=== PATIENT | female | born 1955 | race Caucasian/White ===

== ENCOUNTER → 2025-01-27 14:18 | Outpatient (BNVA) | payer MEDICARE, SELFPAY | PROVIDERS: PCP Nurse Practitioner Family; Visit Provider Nurse Practitioner Family | DX: R05.9 Cough, unspecified (principal); R50.9 Fever, unspecified; R06.02 Shortness of breath; J44.1 Chronic obstructive pulmonary disease with (acute) exacerbation | CPT/HCPCS: 87071; 87400; 87426; 87880 ==

== ENCOUNTER → 2025-03-14 10:30 | Outpatient (BNVA) | payer MEDICARE, SELFPAY | PROVIDERS: PCP Nurse Practitioner Family; Visit Provider Nurse Practitioner Family | DX: Z13.6 Encounter for screening for cardiovascular disorders (principal) | CPT/HCPCS: 80053; 80061; 85025 ==

== ENCOUNTER 2025-03-19 08:49 | Outpatient (CLI) | payer MEDICARE, SELFPAY ==
--- NOTE | 2025-03-19 09:00 | CT_ITS ---
WS: [id number] LDCT LUNG CANCER SCREENING TECHNIQUE: Noncontrast CT of the chest with coronal and sagittal reformatted images. CLINICAL INFORMATION: F17.210 - Nicotine dependence, cigarettes, uncomplicated COMPARISON: None. DLP: 52.80 mGy.cm DIvol: Mean CTDIvol: 1.00 (mGy) All CT scans at [facility] use at least one of these dose optimization techniques: automated exposure control; mA and/or kV adjustment per patient size (includes targeted exams where dose is matched to clinical indication); or iterative reconstruction. FINDINGS: Moderate chronic emphysematous changes. Small RIGHT perifissural nodule. Subsegmental atelectasis in the lingula and LEFT lower lobe. Chronic LEFT rib fractures with callus formation. Enlarged bulky RIGHT thyroid mass with extensive dystrophic calcification. This could be further evaluated with ultrasound and contrast-enhanced neck CT. RIGHT to LEFT mass effect on the trachea at the thoracic inlet. Aortic calcification. Normal caliber thoracic aorta. Mild coronary calcification. Adrenal glands are normal. Splenic artery calcification. Moderate thoracic kyphosis. Chronic anterior wedging the mid and lower thoracic spine. CT/CT lung screening [id number] IMPRESSION: Enlarged bulky RIGHT thyroid mass with extensive dystrophic calcification. This could be further evaluated with ultrasound and contrast-enhanced neck CT. LUNG-RADS: 2S-Benign Appearance or Behavior with Significant Findings FOLLOW UP: 12 Month: Continue annual screening with LDCT
== END 2025-03-19 08:50 | disposition home or self-care (01) ==
LOC: RAD 08:51
PROVIDERS: PCP Nurse Practitioner Family; Visit Provider Nurse Practitioner Family
DX: Z12.2 Encounter for screening for malignant neoplasm of respiratory organs (principal); F17.210 Nicotine dependence, cigarettes, uncomplicated; J43.8 Other emphysema; R91.1 Solitary pulmonary nodule; J98.11 Atelectasis; S22.42XD Multiple fractures of ribs, left side, subsequent encounter for fracture with routine healing; R93.89 Abnormal findings on diagnostic imaging of other specified body structures; I70.0 Atherosclerosis of aorta; I25.10 Atherosclerotic heart disease of native coronary artery without angina pectoris; I70.8 Atherosclerosis of other arteries; M40.294 Other kyphosis, thoracic region
CPT/HCPCS: 71271

== ENCOUNTER 2025-03-31 14:56 | Outpatient (CLI) | payer MEDICARE, SELFPAY ==
--- NOTE | 2025-03-31 15:00 | MM_ITS ---
WS: [id number] BILATERAL 3D TOMOSYNTHESIS DIGITAL SCREENING MAMMOGRAPHY WITH CAD CLINICAL INFORMATION: Z12.39 - Encounter for other screening for malignant neop... HISTORY: Screening mammogram. No current complaints. COMPARISON: Baseline TECHNIQUE: Bilateral CC and MLO views. FINDINGS: Scattered fibroglandular densities bilaterally. No suspicious focal mass, asymmetry, calcifications, or architectural distortion. No evidence of malignancy. Incidental calcifications RIGHT breast MM/MM scr BI tomosynthesis [id number] IMPRESSION: DENSITY: There are scattered areas of fibroglandular density. BI-RADS: 2 - Benign. FOLLOW UP: 1 Year Follow-up Recommend return to annual screening mammography.
--- NOTE | 2025-03-31 15:30 | XR_ITS ---
WS: [email or web address] SCREENING DEXA SCAN Quick [employer] CLINICAL INFORMATION: Z78.0 - Asymptomatic menopausal state COMPARISON: None. FINDINGS: The L1-L4 bone mineral density measures 1.178 g/cm2. This corresponds to a T score score of 0.0 and Z score of 1.1. Left femoral neck bone mineral density measures 0.695 g/cm2. This corresponds to a T score of -2.5 and Z score of -1.5. Right femoral neck bone mineral density measures 0.741 g/cm2. This corresponds to a T score -2.1of and Z score of -1.2. Mean femoral neck bone mineral density measures 0.718 g/cm2. This corresponds to a T score of -2.3 and Z score of -1.4. XR/XR DEXA axial skeleton* [id number] IMPRESSION: Normal bone mineralization lumbar spine. Osteopenia femoral necks approaching o steoporosis. Patient's FRAX calculated 10 year probability for major osteoporotic fracture i s 14.0% and osteoporotic hip fracture is 3.3%.
== END 2025-03-31 14:57 | disposition home or self-care (01) ==
LOC: RAD 14:58
PROVIDERS: PCP Nurse Practitioner Family; Visit Provider Nurse Practitioner Family
DX: Z12.31 Encounter for screening mammogram for malignant neoplasm of breast (principal); Z78.0 Asymptomatic menopausal state; M85.88 Other specified disorders of bone density and structure, other site; R92.323 Mammographic fibroglandular density, bilateral breasts; R92.1 Mammographic calcification found on diagnostic imaging of breast
CPT/HCPCS: 77063; 77067; 77080

== ENCOUNTER 2025-04-11 13:56 | Outpatient (CLI) | payer MEDICARE, SELFPAY ==
--- NOTE | 2025-04-11 14:15 | USR_ITS ---
PROCEDURE INFORMATION: Exam: US Soft Tissue Head and Neck, Thyroid Exam date and time: 04/11/2025 2:10 PM Age: 69 years old Clinical indication: Condition or disease; Thyroid disorder; Other: Disorder of thyroid, unspecified; Additional info: E07.9 - disorder of thyroid, unspecified TECHNIQUE: Imaging protocol: Real-time ultrasound scan of the neck with image documentation. Exam focused on the thyroid. COMPARISON: CT lung screening [id number] 03/19/2025 9:04 AM FINDINGS: Right thyroid lobe: The right lobe measures 3.4 x 3.2 x 4.3 cm. Right lobe is heterogeneous and enlarged. A 3.4 x 3 x 3 cm isoechoic, solid nodule is located superiorly in the right lobe, which is wider than tall and demonstrates a macrocalcification (TR 4). Left thyroid lobe: The left lobe measures 3.5 x 1.6 x 1.4 cm. The left lobe is heterogeneous. A 1.1 x 0.9 x 0.9 cm hypoechoic, ill-defined solid nodule is located in the mid left thyroid. The nodule is wider than tall and contains no calcifications (TR 4). Isthmus: The isthmus measures 4 mm. Soft tissues: No cervical ward enlargement identified. US/US thyroid [id number] IMPRESSION: 1. 3.4 cm TR 4 nodule in the right lobe of the thyroid. Ultrasound-guided biopsy is recommended. 2. 1.1 cm TR 4 nodule in the left lobe. Sonographic follow-up is recommended.
== END 2025-04-11 13:57 | disposition home or self-care (01) ==
LOC: RAD 13:57
PROVIDERS: PCP Nurse Practitioner Family; Visit Provider Nurse Practitioner Family
DX: E04.2 Nontoxic multinodular goiter (principal)
CPT/HCPCS: 76536

== ENCOUNTER → 2025-05-05 07:59 | Outpatient (BNVA) | payer MEDICARE, SELFPAY | PROVIDERS: PCP Nurse Practitioner Family; Visit Provider Nurse Practitioner Family | DX: Z13.6 Encounter for screening for cardiovascular disorders (principal) | CPT/HCPCS: 80053; 80061; 85025 ==